=== PATIENT | female | born 1995 | race African-American/Black ===

== ENCOUNTER 2023-11-27 17:47 | Emergency (ER) | payer OTHER, SELFPAY ==
[2023-11-27 17:51] VITALS: BP 114/75
--- NOTE | 2023-11-27 18:11 | ED.GENMED ---
History of Present Illness
General
Chief Complaint: Chest Pain
Source: patient
Exam Limitations: none
Time Seen by Provider: 11/27/23 17:54
Travel History
Have you had any contact with someone who has COVID-19?: No
Do you have any symptoms of coronavirus? Fever > 100 degrees, chills, cough, shortness of breath, sore throat, loss of taste or smell, muscle aches, or headache?: No
History of Present Illness
History of Present Illness:
This is a 28 year old female that comes in with c/o left sided chest pain. States that this has been going for a week but the past 3 days the pain is worse. State that the pain is on the left chest and into her back. States that she has a history of
PE and sometimes she does forget to take her Xarelto. States that the pain has been constant and that she feels SOB. States that she also had some diarrhea but it may have been from something she eat. States that she has a headache and feels
lightheaded. Denies any fever, chills, abd pain, nausea. vomiting, urinary burning.
Past History
Past History
ED Past Medical History: Asthma, Psychiatric (Anxiety, Bipolar) and Other (PE, Cardiomegaly); Negative HTN, Hypercholesterolemia or NIDDM
ED Past Surgical History: Other (Hernia, )
Social History
Tobacco: Non-smoker
Alcohol: None
Drug: Marijuana
Personal:
Living: with family
Employment: Employed
Review of Systems
Review of Systems
All Other Systems: ROS reviewed and negative except as documented in HPI and ROS
Constitutional: Reports no symptoms; Denies fever or chills
EENT: Reports no symptoms
Respiratory: Reports trouble breathing
Cardiac: Reports chest pain
ABD/GI: Reports diarrhea; Denies abdominal pain, nausea or vomiting
: Reports no symptoms; Denies dysuria, frequency or urgency
Musculoskeletal: Reports no symptoms
Skin: Reports no symptoms
Neurological: Reports headache and other (Lightheaded); Denies dizzy
Psychiatric: Reports no symptoms
Phy Exam
General Physical Exam
General Presentation: well appearing and no apparent distress
General age: appears stated age
General Skin: warm and dry
General Habitus: normal
General Mental: alert
General Hydration: appears well hydrated
ENT Exam
ENT Exam: TM's normal, pharynx normal and neck supple
Eye Exam
Eye Exam: EOMI
Cardiovascular Exam
Cardiovascular Exam: regular rate/rhythm, no edema, no murmur and normal peripheral pulses
Pulmonary Exam
Pulmonary Exam: lungs clear, no respiratory distress, no rales, chest non tender, no crackles, no rhonchi, no wheezing and no cough
Gastrointestinal Exam
Gastrointestinal Exam: normal bowel sounds, non tender, soft, no organomegaly, no pulsatile mass and non distended
Musculoskeletal Exam
Musculoskeletal Exam: full ROM and no edema
Skin Exam
Skin Exam: normal color, warm/dry, no rash and no petechia
Psychiatric Exam
Psychiatric Exam: normal mood/affect
Scores
Heart Score for Chest Pain Patients
STEMI patient?: No
History: Slightly or Non-Suspicious
ECG: Normal
Age: </= 45 years
Risk Factors: No Risk Factors
Troponin: </= Normal Limit
Heart Score for Chest Pain Patients: 0
Heart Score Risk: 2.5% MACE over next 6 weeks
Course
Orders/Labs/Results
Orders:
Orders
11/27/23 17:50
EKG [Electrocardiogram (*1)] Urgent
Reason for Study: Chest Pain
EKG- Treatment ONCE
11/27/23 19:14
CBC/With Diff [Complete Blood Count/With Diff] Urgent
CMP [Comprehensive Metabolic Panel] Urgent
DDimer [D-Dimer] Urgent
Troponin I Urgent
11/27/23 22:15
CR Chest - 2 Views Urgent
Comment:
Reason For Exam: SOB
Abnormal Lab Results
11/27/23
19:14
Absolute Lymphs (auto) 4.7 H 10^3/uL
(1.2-3.4)
Neutrophils % 23.8 L %
(42.2-75.2)
Lymphocytes % 64.5 H %
(20.5-51.1)
BUN 19 H mg/dl
(7-17)
11/27/23 19:14
11/27/23 19:14
Vital Signs
Initial and Last Documented VS:
Initial Vital Signs
Temp Pulse Resp BP Pulse Ox
98.2 F 70 18 114/75 100
11/27/23 17:51 11/27/23 17:51 11/27/23 17:51 11/27/23 17:51 11/27/23 17:51
Last Documented Vital Signs
Temp Pulse Resp BP Pulse Ox
98.2 F 64 11 107/62 100
11/27/23 17:51 11/27/23 20:45 11/27/23 20:45 11/27/23 20:00 11/27/23 20:45
MDM/Problems Addressed
Differential Diagnosis Includes:
PE, Musculoskeletal chest wall pain,
MDM/Problems Addressed:
This is a 28 year old female that comes in with c/o left sided chest and back pain. State that this has been going on for a week and the past three days the pain has gotten worse. State that the pain is constant.
Will get labs and CT chest if D-dimer is abnormal.
Back into see patient. Explained that her D-dimer is negative along with her Troponin. Patient can use Ibuprofen for pain. Follow up with the family doctor Return with any concerns.
Chronic conditions affecting care:
History of PE,
Acute Exacerbation and/or Progression of Chronic Illness:
NA
*Radiology
Radiology exam reviewed: preliminary read by ED provider (Chest- Negative for any acute process)
*Pulse Oximetry
Patient hypoxic: no
*EKG
Interpreted by ED Provider?: Yes
Heart Rate: 69
Rate: normal
Rhythm: sinus arrhythmia
[place]: normal axis
Interval: normal interval
QRS Pattern: normal QRS
Ischemia: no ischemia
*Gis Coordinator Interpretation
Rate: normal
Heart Rate: 66
Rhythm: sinus
*Critical Care Note
Total Time (30-74mins, 75-104mins- exclusive of procedures): Not Applicable
ED Attending Note
-
Portions of this chart may have been created with voice recognition software.� Occasional wrong word or��sound alike� substitutions may have occurred due to the inherent limitations of voice recognition software.
Discharge Plan
Departure
Patient Disposition: Home (Routine Discharge)
Date of Disposition: 11/27/23
Time of Disposition: 22:40
Patient with high blood pressure during this ER visit?: No
Condition: Good
Covid-19: Not Applicable
Discharge Problem:
Chest pain
Instructions: Chest Pain PCP Follow Up
Referrals:
UNKNOWN - PT DOES,NOT KNOW [Family Provider] -
Activity Restrictions/Additional Instructions:
As discussed, your blood work shows very slight Dehydration. Your chest x-ray is normal along with your D-dimer. Please remember to take your Xarelto as directed. Follow up with the family doctor for recheck. This may be musculoskeletal pain. IF YOU
HAVE ANY OTHER CONCERNS PLEASE RETURN TO THE EMERGENCY ROOM.
Interventions
Interventions:
*Risk Screen - Suicide Last Done: 11/27/23 17:51
*General Assessment Last Done: 11/27/23 17:51
*Neglect/Abuse Screening Last Done: 11/27/23 17:51
ED- Fall Risk Assessment Last Done: 11/27/23 18:03
*ED COVID-19 Vaccine History Last Done: 11/27/23 20:01
ED- Cardiac Assessment Last Done: 11/27/23 18:03
Discharge Date and Time
Print Language: [email or web address]
[2023-11-27 19:18] VITALS: BP 101/66
[2023-11-27 19:24] LABS: % Basophils 0.7 % (0-2); % Immature Granulocytes 0.1 % (0-0.5); % Lymphocytes 64.5 % (20.5-51.1); % Monocytes 7.9 % (1.7-9.3); % Neutrophils 23.8 % (42.2-75.2); Absolute Basophils 0.1 10^3/uL (0-0.2); Absolute Eosinophils 0.2 10^3/uL (0-0.7); Absolute Lymphocytes 4.7 10^3/uL (1.2-3.4); Absolute Monocytes 0.6 10^3/uL (0.1-0.6); Absolute Neutrophils 1.7 10^3/uL (1.4-6.5); Hematocrit 37.5 % (37.0-47.0); Hemoglobin 12.6 g/dL (12.0-16.0); Mean Corp Hgb Conc. 33.6 g/dL (33.0-37.0); Mean Corpuscular Volume 83.3 fL (81.0-99.0); Mean Platelet Volume 9.1 fL (7.4-10.4); Nucleated Red Blood Cells % 0 %; Platelet Count 397 10^3/uL (130-400); Red Cell Dist. Width 14.5 % (11.5-14.5); White Blood Cell Count 7.2 10^3/uL (4.8-10.8)
[2023-11-27 19:36] LABS: ALT (SGPT) 27 U/L (0-35); AST (SGOT) 31 U/L (14-36); Albumin 4.9 g/dl (3.5-5.0); Alkaline Phosphatase 87 U/L (38-126); Blood Urea Nitrogen 19 mg/dl (7-17); Carbon Dioxide 22 mmol/L (22-30); Chloride 100 mmol/L (98-107); Estimated Creatinine Clearance 117 ml/min; Glucose 83 mg/dl (70-99); Sodium 136 mmol/L (135-145); Total Bilirubin 0.5 mg/dl (0.2-1.3); eGFR > 60.00
[2023-11-27 19:40] LABS: D-Dimer < 0.27 ug/mlFEU (0.00-0.50)
[2023-11-27 19:47] LABS: Troponin I < 0.012 ng/ml
[2023-11-27 20:00] VITALS: BP 107/62
[2023-11-27 22:30] VITALS: BP 100/52
== END 2023-11-27 22:57 | disposition home or self-care (01) ==
LOC: EMR 17:47
PROVIDERS: Clinical Nurse Specialist Family Health; EMERGENCY PHYSICIAN Emergency Medicine
DX: R07.89 Other chest pain (principal); R19.7 Diarrhea, unspecified; R42 Dizziness and giddiness; R06.02 Shortness of breath; R51.9 Headache, unspecified; Z86.711 Personal history of pulmonary embolism
CPT/HCPCS: 99285; 71046; 80053; 84484; 85025; 85379; 93005